=== PATIENT | female | born 1995 | race Caucasian/White ===

== ENCOUNTER 2017-09-24 17:09 | Emergency (ER) | payer OTHER ==
[2017-09-24 20:17] LABS: ABS Basophils 0.1 10^3/ul (0-0.2); ABS Eosinophils 0.4 10^3/ul (0-0.6); ABS Lymphocytes 3.1 10^3/ul (1.0-4.8); ABS Monocytes 0.8 10^3/ul (0-0.8); ABS Neutrophils 7.4 10^3/ul (1.5-7.7); ABS Nucleated RBC 0 10^3/ul; Eosinophil % 3.4 % (0-6); Hematocrit 41 % (35-47); Hemoglobin 13.7 g/dl (12.0-16.0); Lymphocyte % 26.5 % (25-47); Mean Corpuscular HGB Conc 33 g/dl (31-36); Mean Corpuscular Hemoglobin 31 pg (27-31); Mean Corpuscular Volume 94 fL (80-97); Mean Platelet Volume 8 um3 (7.4-10.4); Nucleated Red Blood Cells % 0.1; Platelet Count 335 10^3/ul (150-450); Red Blood Count 4.35 10^6/ul (4.0-5.4); Red Cell Distribution Width 13 % (10.5-15); White Blood Count 11.7 10^3/ul (3.5-10.8)
[2017-09-24 20:30] LABS: EGFR Non-African American 77.8 (>60)
[2017-09-24] MEDS ORDERED: NS 0.9% 1000 ML* 1,000 ML IV ONE (21:33)
[2017-09-24] MEDS ORDERED: Ketorolac INJ* 30 MG/ML 1 ML VIAL IV PUSH ONE (21:33)
[2017-09-24 22:14] LABS: Urine Appearance Cloudy; Urine Blood Negative (Negative); Urine Color Yellow; Urine Ketones Negative (Negative); Urine Protein Negative (Negative); Urine Specific Gravity 1.012 (1.010-1.030); Urine Urobilinogen Negative (Negative)
[2017-09-25] MEDS ORDERED: Iohexol 300* (CONTRAST) 10 ML SDV IV ONE (01:13)
[2017-09-25 02:18] VITALS: BP 121/79
--- NOTE | 2017-09-25 04:40 | ED ---
Felix Singletary Thomas, scribed for Rubén Peralta on 09/25/17 at 0146 . Progress - Progress Note Progress Note: The patient is a sign out from Dr. Henderson at shift change pending CT Abd/Pel and pelvic ultrasound. CT Abd/Pel. Interpreted by radiologist. Impression: No definite findings for appendicitis or other acute pathology. Trace pelvic free fluid may be physiologic. This report has been reviewed by Dr. Peralta. Ultrasound Pelvis. Interpreted by radiologist. Impression: Normal arterial and venous Doppler flow and waveforms is seen in both ovaries. Dr. Peralta has reviewed this report. The imaging is negative. The patient will be discharged with primary care follow -up. Condition is stable. Course/Dx - Diagnoses Provider Diagnoses: Abdominal pain The documentation as recorded by the Felix grady Thomas accurately reflects the service I personally performed and the decisions made by Fabian anderson Emmanuel.
--- NOTE | 2017-09-25 07:31 | RAD ---
HISTORY: Suprapubic right lower quadrant pain COMPARISONS: None TECHNIQUE: Multiple transverse and longitudinal ultrasound images were obtained of the right kidney using grayscale and color Doppler imaging. FINDINGS: RIGHT KIDNEY: The right kidney is normal in shape, size, contour, and echogenicity. There is no hydronephrosis or nephrolithiasis. The right kidney measures 10.8 x 4.1 x 5 cm. LEFT KIDNEY: No images are submitted of the left kidney. BLADDER: No images are submitted of the bladder. AORTA AND IVC: No images are submitted of the vasculature. RETROPERITONEUM: Unremarkable. OTHER: None. IMPRESSION: NO RIGHT HYDRONEPHROSIS OR NEPHROLITHIASIS
--- NOTE | 2017-09-25 07:32 | RAD ---
HISTORY: Periumbilical pain COMPARISONS: None TECHNIQUE: Multiple transverse and longitudinal ultrasound images were obtained of the right lower quadrant using grayscale and color Doppler imaging. FINDINGS: Evaluation limited by large amount of stool and bowel gas. The appendix is not visualized. There is no free or loculated fluid within the right lower quadrant. IMPRESSION: THE APPENDIX IS NOT VISUALIZED. THERE IS NO FREE OR LOCULATED FLUID WITHIN THE RIGHT LOWER QUADRANT.
--- NOTE | 2017-09-25 07:55 | RAD ---
INDICATION: Pelvic pain COMPARISON: None. TECHNIQUE: Real-time transabdominal only ultrasound examination of the female pelvis including grayscale and Doppler color flow imaging. FINDINGS: Uterus: The uterus is normal in size and echogenicity measuring 6.9 x 2.2 x 4.4 cm. The endometrial stripe is smooth and uniform measuring 4 mm in thickness. Ovaries: The right and left ovary measure 2.4 x 1.3 x 2.3 cm and 2.0 x 1.4 x 1.3 cm, respectively. Normal arterial and venous waveforms are identified. Appearance is within normal limits for the patient's age. There is no free fluid in the cul-de-sac. IMPRESSION: Normal and age-appropriate pelvic ultrasound.
--- NOTE | 2017-09-25 07:59 | RAD ---
CLINICAL HISTORY: Epigastric and right lower quadrant pain COMPARISON: Same day pelvic ultrasound as well as ultrasound of the right lower quadrant TECHNIQUE: Contrast enhanced CT examination of the abdomen and pelvis from the lung bases through the initial tuberosities. The patient received 70 mL Omnipaque 300 intravenously prior to imaging.The patient received oral contrast as well prior to imaging. FINDINGS: VISUALIZED LUNG BASES: The visualized lung bases are grossly clear. There is no pleural effusion. ABDOMEN AND PELVIS: The liver, spleen, pancreas and adrenal glands are grossly normal in appearance. The gallbladder is normal. The kidneys are normal in appearance without focal mass, calcification or signs of hydronephrosis. The oral contrast has progressed as far as the base of the cecum. The small and large bowel are not distended. The 6 mm diameter appendix is identified in the right lower quadrant processes coronal image 40 the appendix is partially fluid-filled but there is foci of gas as well. There is no definite periappendiceal inflammatory change. Gas and stool seen throughout the length of the colon. There is no gross retroperitoneal or mesenteric lymphadenopathy. The pelvic viscera is normal in appearance. The abdominal aorta and iliac arteries are normal in course and diameter. The visualized bones are normal. IMPRESSION: Normal CT examination.
== END 2017-09-25 02:10 | disposition home or self-care (01) ==
LOC: ED 17:09
DX: R10.9 Unspecified abdominal pain (principal)
CPT/HCPCS: 36415; 74177; 76705; 76775; 76856; 80053; 81003; 83605; 83690; 84702; 85025; 86140; 87480; 87491; 87510; 87591; 96374; 99284; J1885; Q9967